=== PATIENT | female | born 1960 | race Caucasian/White ===

== ENCOUNTER 2020-12-15 15:47 | Observation (INO) ==
[2020-12-15] MEDS ORDERED: ONDANSETRON 4 MG/2 ML VIAL IM STA (16:35)
[2020-12-15] MEDS ORDERED: HYDROmorphone 2 MG/1 ML VIAL IM STA (16:35)
[2020-12-15] MEDS ORDERED: MAGNESIUM HYDROXIDE SUSP 30 ML UDCUP PO PRN (17:10)
[2020-12-15] MEDS ORDERED: ONDANSETRON 4 MG/2 ML VIAL IV ONE (17:10)
[2020-12-15] MEDS ORDERED: ONDANSETRON 4 MG/2 ML VIAL IV PRN (17:10)
[2020-12-15] MEDS ORDERED: HYDROmorphone 2 MG/1 ML VIAL IV STA (17:10)
[2020-12-15] MEDS ORDERED: PROMETHAZINE 25 MG/1 ML VIAL IM PRN (17:10)
[2020-12-15 17:16] LABS: Basophils % 0.3 % (0.0-0.8); Eosinophils % 0.3 % (0.00-10.9); Hematocrit 45.4 VOL% (35.7-47.0); Hemoglobin 15.2 GM/DL (12.0-16.0); Immature Granulocytes % 0.4 %; Immature Granulocytes Absolute 0.05 #; Lymphocytes # 1.4 10*3/uL (1.4-4.0); Lymphocytes % 10.9 % (21.3-54.2); Mean Corpuscular HGB Conc 33.5 GM/DL (32-36); Mean Platelet Volume 10.6 FL (9.6-12.0); Monocytes % 5.4 % (1.7-12.7); Neutrophils % 82.7 % (38.7-73.9); Platelet Count 274 T/CUMM (130-400); Red Blood Count 4.99 MC/CUMM (3.8-5.5); Red Cell Distribution Width 13.1 % (9.3-17.3); White Blood Count 12.8 T/CUMM (4-12)
[2020-12-15 17:23] LABS: PT Patient Result 11.3 SECS (10.5-12.0)
[2020-12-15 17:30] LABS: Bilirubin,Total 0.5 MG/DL (0.2-1.0); Osmolality,Calculated 276.7 MOS/KG (273-304); Total Protein 8.3 G/DL (6.4-8.2)
[2020-12-15] MEDS ORDERED: ceFAZolin 1,000 MG VIAL ONE (17:52)
[2020-12-15] MEDS ORDERED: fentaNYL 100 MCG/2 ML VIAL ONE (17:56)
[2020-12-15] MEDS ORDERED: MIDAZOLAM 2 MG/2 ML VIAL ONE (17:56)
[2020-12-15] MEDS ORDERED: propofoL 200 MG/20 ML VIAL IV ONE (17:57)
[2020-12-15] MEDS ORDERED: ROCURONIUM 50 MG/5 ML VIAL IV ONE (17:57)
[2020-12-15] MEDS ORDERED: LIDOCAINE 2% 5 ML VIAL ONE (17:57)
[2020-12-15] MEDS ORDERED: SEVOFLURANE 1 UNIT/15 MINUTE INH ONE ×3 (17:57→21:57)
[2020-12-15] MEDS: MORPHINE 4 MG/1 ML VIAL IV PRN (18:40)
[2020-12-15] MEDS ORDERED: DEXAMETHASONE 4 MG/1 ML VIAL ONE (20:55)
[2020-12-15] MEDS ORDERED: ONDANSETRON 4 MG/2 ML VIAL ONE (20:55)
[2020-12-15] MEDS ORDERED: GLYCOPYRROLATE 0.4 MG/2 ML VIAL ONE (21:57)
[2020-12-15] MEDS ORDERED: NEOSTIGMINE 10 MG/10 ML VIAL ONE (21:57)
[2020-12-15] MEDS: HYDROmorphone 2 MG/1 ML VIAL IV PRN ×4 (22:36→22:55)
[2020-12-15] MEDS: SODIUM CHLORIDE 0.9% 1,000 ML IV SCH (23:28)
[2020-12-16] MEDS: MORPHINE 4 MG/1 ML VIAL IV PRN (00:51)
[2020-12-16] MEDS: SODIUM CHLORIDE 0.9% 1,000 ML IV SCH (05:38)
[2020-12-16] MEDS ORDERED: LEVOTHYROXINE 137 MCG TABLET PO SCH (06:30)
[2020-12-16] MEDS ORDERED: MULTIVITAMIN (CENTRUM) TABLET PO SCH (09:00)
[2020-12-16] MEDS ORDERED: LOSARTAN 50 MG TABLET PO SCH (09:00)
[2020-12-16 09:24] VITALS: BP 143/76
== END 2020-12-16 13:30 | disposition home or self-care (01) ==
LOC: N.EDINP 15:47 → N.ED 15:47 → N.3E 17:42
PROVIDERS: ADMIT Orthopaedic Surgery; ATTEND Orthopaedic Surgery